=== PATIENT | female | born 1960 | race American Indian/Alaskan Native ===

== ENCOUNTER 2017-01-31 14:40 | Emergency (ER) | payer SELFPAY ==
[2017-01-31 15:15] VITALS: BP 150/83; PULSE 77; RESP 20; TEMP 98.6; O2SAT 99; BMI 47.2
--- NOTE | 2017-01-31 15:35 | ED PDOC ---
Arrival/HPI - General Chief Complaint: Headache Time Seen by Provider: 01/31/17 14:53 Historian: Patient - History of Present Illness Narrative History of Present Illness (Text): 01/31/17 15:32 This 56 yo female with PMHx significant for NIDDM, and HTN, who presents to ER with complaint of scalp itching, soreness scalp x 3 months. Patient stated she has been using Dandruff medication without significant improvement. Patient stated she is complaint to her medication. Patient denies headache, weakness, paresthesias, recent travel, sick contact,or abnormal gait. Patient stated her daughter has similar scalp rash. Time/Duration: Other (3 months) Context: Home Past Medical History - Provider Review Nursing Documentation Reviewed: Yes - Past History Past History: Non-Contributing - Infectious Disease Hx of Infectious Diseases: None - Reproductive Menopause: No - Cardiac Hx Cardiac Disorders: Yes Hx Hypertension: Yes - Pulmonary Hx Respiratory Disorders: No - Neurological Hx Neurological Disorder: No - HEENT Hx HEENT Disorder: No - Renal Hx Renal Disorder: No - Endocrine/Metabolic Hx Endocrine Disorders: Yes Hx Diabetes Mellitus Type 2: Yes - Hematological/Oncological Hx Blood Disorders: No - Integumentary Hx Dermatological Disorder: No - Musculoskeletal/Rheumatological Hx Musculoskeletal Disorders: No - Gastrointestinal Hx Gastrointestinal Disorders: No - Genitourinary/Gynecological Hx Genitourinary Disorders: No - Psychiatric Hx Psychophysiologic Disorder: No Hx Substance Use: No - Surgical History Hx Section: Yes - Anesthesia Hx Anesthesia: No Hx Anesthesia Reactions: No Hx Malignant Hyperthermia: No Family/Social History - Physician Review Nursing Documentation Reviewed: Yes Family/Social History: No Known Family HX Smoking Status: Never Smoked Hx Alcohol Use: No Hx Substance Use: No Allergies/Home Meds Allergies/Adverse Reactions: Allergies amoxicillin Allergy (Verified 01/31/17 15:38) RASH Home Medications: Home Meds Medication Instructions Recorded Confirmed Lisinopril [Zestril] 20 mg PO DAILY 06/06/16 01/31/17 Review of Systems - Review of Systems Constitutional: Normal. absent: Fatigue, Weight Change, Fevers Eyes: Normal ENT: Normal. absent: Sore Throat, Rhinorrhea Respiratory: Normal. absent: SOB, Cough, Sputum, Wheezing Cardiovascular: Normal Gastrointestinal: Normal. absent: Abdominal Pain, Nausea, Vomiting Genitourinary Female: Normal Musculoskeletal: Normal Skin: Rash (scalp), Pruritis Neurological: Normal. absent: Headache, Dizziness, Focal Weakness, Gait Changes , Speech Changes, Facial Droop, Disequilibrium Endocrine: Normal Hemo/Lymphatic: Normal Psychiatric: Normal Physical Exam Vital Signs Temp Pulse Resp BP Pulse Ox 01/31/17 15:09 98.6 F 77 20 150/83 99 Temperature: Afebrile Blood Pressure: Normal Pulse: Regular Respiratory Rate: Normal Appearance: Positive for: Well-Appearing, Non-Toxic, Comfortable Pain Distress: None Mental Status: Positive for: Alert and Oriented X 3 - Systems Exam Head: Present: Atraumatic, Normocephalic Pupils: Present: PERRL Extroacular Muscles: Present: EOMI Conjunctiva: Present: Normal Mouth: Present: Moist Mucous Membranes Pharnyx: Present: Normal. No: ERYTHEMA, EXUDATE, TONSILS ENLARGED Neck: Present: Normal Range of Motion Back: Present: Normal Inspection Upper Extremity: Present: Normal Inspection, Normal ROM, NORMAL PULSES, Neurovascularly Intact, Capillary Refill < 2s. No: Cyanosis, Edema Lower Extremity: Present: Normal Inspection, NORMAL PULSES, Normal ROM, Neurovascularly Intact, Capillary Refill < 2 s. No: Edema Neurological: Present: GCS=15, CN II-XII Intact, Speech Normal Skin: Present: Warm, Dry, Rashes ((+) scalp scaly rash, resembled dandruff), Normal Color Psychiatric: Present: Alert, Oriented x 3, Normal Insight, Normal Concentration Medical Decision Making ED Course and Treatment: 01/31/17 15:41 Re-evaluation. Patient feels better. Discussed results and plan with patient who expresses understanding. All questions answered and there is agreement with the plan to discharge home with instructions. Patient stable for discharge. Return if symptoms persist or worsen. Re-evaluation Time: 15:40 Reassessment Condition: Re-examined, Unchanged Disposition/Present on Arrival - Present on Arrival Any Indicators Present on Arrival: No History of DVT/PE: No History of Uncontrolled Diabetes: No Urinary Catheter: No History of Decub. Ulcer: No History Surgical Site Infection Following: None - Disposition Have Diagnosis and Disposition been Completed?: Yes Diagnosis: Dandruff in adult Disposition: HOME/ ROUTINE Disposition Time: 15:42 Patient Plan: Discharge Condition: GOOD Discharge Instructions (ExitCare): Selenium Sulfide (On the skin) Additional Instructions: Call private or clinic doctor for follow up visit in 1-2 days. return to emergency if symptoms worsen. Prescriptions: Ketoconazole 2% Shampoo [Nizoral] 1 appl TP 2XW PRN #1 bottle PRN Reason: Itching / Pruritus Referrals: Jo Campbell MD [Primary Care Provider] - Follow up with primary [facility] [Outside] - Follow up with primary [facility] [Outside] - Follow up with primary
== END 2017-01-31 16:33 | disposition home or self-care (01) ==
LOC: ED 14:40
DX: I10 Essential (primary) hypertension (principal); E11.9 Type 2 diabetes mellitus without complications; L21.9 Seborrheic dermatitis, unspecified

== ENCOUNTER 2017-03-02 18:34 | Emergency (ER) | payer OTHER ==
[2017-03-02 18:35] VITALS: BMI 47.2
[2017-03-02 19:02] VITALS: TEMP 98.9
[2017-03-02 20:50] VITALS: BP 130/72; PULSE 82; RESP 17; O2SAT 98
--- NOTE | 2017-03-02 20:54 | ED PDOC ---
Arrival/HPI - General Chief Complaint: Cough, Cold, Congestion Time Seen by Provider: 03/02/17 19:12 Historian: Patient - History of Present Illness Narrative History of Present Illness (Text): 03/02/17 21:01 A 56 year old female presents to the emergency department complaining of cough and congestion. Patient also notes productive cough with phlegm. Denies any fever, chills, shortness of breath or any other complaints at this time. Symptom Onset: Sudden Symptom Course: Unchanged Activities at Onset: Rest Context: Home Past Medical History - Provider Review Nursing Documentation Reviewed: Yes - Past History Past History: Non-Contributing - Infectious Disease Hx of Infectious Diseases: None - Cardiac Hx Cardiac Disorders: Yes Hx Hypertension: Yes - Pulmonary Hx Respiratory Disorders: No - Neurological Hx Neurological Disorder: No - HEENT Hx HEENT Disorder: No - Renal Hx Renal Disorder: No - Endocrine/Metabolic Hx Endocrine Disorders: Yes Hx Diabetes Mellitus Type 2: Yes - Hematological/Oncological Hx Blood Disorders: No - Integumentary Hx Dermatological Disorder: No - Musculoskeletal/Rheumatological Hx Musculoskeletal Disorders: No - Gastrointestinal Hx Gastrointestinal Disorders: No - Genitourinary/Gynecological Hx Genitourinary Disorders: No - Psychiatric Hx Psychophysiologic Disorder: No Hx Substance Use: No - Surgical History Hx Section: Yes - Anesthesia Hx Anesthesia: No Hx Anesthesia Reactions: No Hx Malignant Hyperthermia: No Family/Social History - Physician Review Nursing Documentation Reviewed: Yes Family/Social History: No Known Family HX Smoking Status: Never Smoked Hx Alcohol Use: No Hx Substance Use: No Allergies/Home Meds Allergies/Adverse Reactions: Allergies amoxicillin Allergy (Verified 03/02/17 19:02) RASH Home Medications: Home Meds Medication Instructions Recorded Confirmed Lisinopril [Zestril] 20 mg PO DAILY 06/06/16 03/02/17 Glipizide [Glipizide Xl] 0 mg PO BID 03/02/17 03/02/17 Review of Systems - Physician Review All systems were reviewed & negative as marked: Yes - Review of Systems Constitutional: absent: Fevers, Other (chills) ENT: Sinus Congestion Respiratory: Cough. absent: SOB Physical Exam Vital Signs Reviewed: Yes Vital Signs Temp Pulse Resp BP Pulse Ox 03/02/17 20:49 82 17 130/72 98 03/02/17 18:59 98.9 F 85 16 135/74 97 Temperature: Afebrile Blood Pressure: Normal Pulse: Regular Respiratory Rate: Normal Appearance: Positive for: Well-Appearing, Non-Toxic, Comfortable Pain Distress: None Mental Status: Positive for: Alert and Oriented X 3 Finger Stick Blood Glucose: 231 - Systems Exam Head: Present: Atraumatic, Normocephalic Pupils: Present: PERRL Extroacular Muscles: Present: EOMI Conjunctiva: Present: Normal Mouth: Present: Moist Mucous Membranes Neck: Present: Normal Range of Motion Respiratory/Chest: Present: Clear to Auscultation, Good Air Exchange. No: Respiratory Distress, Accessory Muscle Use Cardiovascular: Present: Regular Rate and Rhythm, Normal S1, S2. No: Murmurs Abdomen: Present: Normal Bowel Sounds. No: Tenderness, Distention, Peritoneal Signs Back: Present: Normal Inspection Upper Extremity: Present: Normal Inspection. No: Cyanosis, Edema Lower Extremity: Present: Normal Inspection. No: Edema Neurological: Present: GCS=15, CN II-XII Intact, Speech Normal Skin: Present: Warm, Dry, Normal Color. No: Rashes Psychiatric: Present: Alert, Oriented x 3, Normal Insight, Normal Concentration Medical Decision Making ED Course and Treatment: 03/02/17 21:00 Impression: A 56 year old female with cough and congestion. Plan: -- chest xray -- Reassess and disposition -- FS Prior Visits: Notes and results from previous visits were reviewed. Patient was last seen in the emergency department on 01/31/17 for evaluation of scalp itching and soreness. Progress Notes: FS 231 CXR : NAD, as read by PA On reevaluation, patient is resting comfortably in no acute distress. Patient is in no respiratory distress, speaking in full sentences. Chest x-ray results discussed with the patient in great detail. Prescription for Z-Ramone and guaifenesin provided to patient. Patient advised rest, instructed to continue continue being compliant with her diabetic medication and to continue to follow diabetic diet to have adequate control of her blood sugar. Otherwise was instructed to follow up with primary care physician in 1-2 days without fail. Return to the emergency room at any time for any new or worsening symptoms. Patient states she fully agrees with and understands discharge instructions. States that she agrees with the plan and disposition. Verbalized and repeated discharge instructions and plan. I have given the patient opportunity to ask any additional questions. - RAD Interpretation Radiology Orders: 03/02/17 19:29 CHEST TWO VIEWS (PA/LAT) [RAD] Stat - PA / MILITARY EQUIPMENT SPECIALIST / Resident Statement MD/DO has reviewed & agrees with the documentation as recorded. - Scribe Statement The provider has reviewed the documentation as recorded by the Joana Espinosa Provider Scribe Attestation: All medical record entries made by the Scribe were at my direction and personally dictated by me. I have reviewed the chart and agree that the record accurately reflects my personal performance of the history, physical exam, medical decision making, and the department course for this patient. I have also personally directed, reviewed, and agree with the discharge instructions and disposition. Disposition/Present on Arrival - Present on Arrival Any Indicators Present on Arrival: No History of DVT/PE: No History of Uncontrolled Diabetes: No Urinary Catheter: No History of Decub. Ulcer: No History Surgical Site Infection Following: None - Disposition Have Diagnosis and Disposition been Completed?: Yes Diagnosis: Cough Disposition: HOME/ ROUTINE Disposition Time: 20:30 Patient Plan: Discharge Condition: STABLE Discharge Instructions (ExitCare): Acute Bronchitis (ED) Print Language: NORWEGIAN Additional Instructions: Thank you for letting us take care of you today. You were treated for cough, consider bronchitis. The emergency medical care you received today was directed at your acute symptoms. If you were prescribed any medication, please fill it and take as directed. It may take several days for your symptoms to resolve. Return to the Emergency Department if your symptoms worsen, do not improve, or if you have any other problems. Please contact your doctor in 2 days for re-evaluation and follow up. Bring any paperwork you were given at discharge with you along with any medications you are taking to your follow up visit. Our treatment cannot replace ongoing medical care by a primary care provider (PCP) outside of the emergency department. Thank you for allowing the [facility] team to be part of your care today. Prescriptions: Azithromycin [Z-Ramone] 250 mg PO DAILY #6 tab Guaifenesin 400 mg PO QID #20 tablet Referrals: Jo Campbell MD [Primary Care Provider] - Follow up with primary Forms: [employer] (Yoruba), WORK NOTE
--- NOTE | 2017-03-02 20:57 | ED PDOC ---
Arrival/HPI - General Chief Complaint: Cough, Cold, Congestion Time Seen by Provider: 03/02/17 19:12 Historian: Patient - History of Present Illness Narrative History of Present Illness (Text): 03/02/17 20:56 A 56 year old female presents to the emergency department complaining of cough and congestion. Patient also reports productive cough with phlegm. Patient denies any fever, chills, shortness of breath or any other complaints at this time. Symptom Onset: Sudden Symptom Course: Unchanged Activities at Onset: Rest Context: Home Past Medical History - Provider Review Nursing Documentation Reviewed: Yes - Past History Past History: Non-Contributing - Infectious Disease Hx of Infectious Diseases: None - Cardiac Hx Cardiac Disorders: Yes Hx Hypertension: Yes - Pulmonary Hx Respiratory Disorders: No - Neurological Hx Neurological Disorder: No - HEENT Hx HEENT Disorder: No - Renal Hx Renal Disorder: No - Endocrine/Metabolic Hx Endocrine Disorders: Yes Hx Diabetes Mellitus Type 2: Yes - Hematological/Oncological Hx Blood Disorders: No - Integumentary Hx Dermatological Disorder: No - Musculoskeletal/Rheumatological Hx Musculoskeletal Disorders: No - Gastrointestinal Hx Gastrointestinal Disorders: No - Genitourinary/Gynecological Hx Genitourinary Disorders: No - Psychiatric Hx Psychophysiologic Disorder: No Hx Substance Use: No - Surgical History Hx Section: Yes - Anesthesia Hx Anesthesia: No Hx Anesthesia Reactions: No Hx Malignant Hyperthermia: No Family/Social History - Physician Review Nursing Documentation Reviewed: Yes Family/Social History: No Known Family HX Smoking Status: Never Smoked Hx Alcohol Use: No Hx Substance Use: No Allergies/Home Meds Allergies/Adverse Reactions: Allergies amoxicillin Allergy (Verified 03/02/17 19:02) RASH Home Medications: Home Meds Medication Instructions Recorded Confirmed Lisinopril [Zestril] 20 mg PO DAILY 06/06/16 03/02/17 Glipizide [Glipizide Xl] 0 mg PO BID 03/02/17 03/02/17 Review of Systems - Physician Review All systems were reviewed & negative as marked: Yes - Review of Systems Constitutional: absent: Fevers, Other (chills) ENT: Sinus Congestion Respiratory: Cough. absent: SOB Physical Exam Vital Signs Reviewed: Yes Vital Signs Temp Pulse Resp BP Pulse Ox 03/02/17 20:49 82 17 130/72 98 03/02/17 18:59 98.9 F 85 16 135/74 97 Temperature: Afebrile Blood Pressure: Normal Pulse: Regular Respiratory Rate: Normal Appearance: Positive for: Well-Appearing, Non-Toxic, Comfortable Pain Distress: None Mental Status: Positive for: Alert and Oriented X 3 Finger Stick Blood Glucose: 231 - Systems Exam Head: Present: Atraumatic, Normocephalic Pupils: Present: PERRL Extroacular Muscles: Present: EOMI Conjunctiva: Present: Normal Mouth: Present: Moist Mucous Membranes Neck: Present: Normal Range of Motion Respiratory/Chest: Present: Clear to Auscultation, Good Air Exchange. No: Respiratory Distress, Accessory Muscle Use Cardiovascular: Present: Regular Rate and Rhythm, Normal S1, S2. No: Murmurs Abdomen: Present: Normal Bowel Sounds. No: Tenderness, Distention, Peritoneal Signs Back: Present: Normal Inspection Upper Extremity: Present: Normal Inspection. No: Cyanosis, Edema Lower Extremity: Present: Normal Inspection. No: Edema Neurological: Present: GCS=15, CN II-XII Intact, Speech Normal Skin: Present: Warm, Dry, Normal Color. No: Rashes Psychiatric: Present: Alert, Oriented x 3, Normal Insight, Normal Concentration Medical Decision Making ED Course and Treatment: 03/02/17 20:54 Impression: A 56 year old female with cough and congestion. Plan: -- chest xray -- Reassess and disposition Prior Visits: Notes and results from previous visits were reviewed. Patient was last seen in the emergency department on 01/31/17 for evaluation of scalp itching and scalp soreness. Progress Notes: - RAD Interpretation Radiology Orders: 03/02/17 19:29 CHEST TWO VIEWS (PA/LAT) [RAD] Stat - Scribe Statement The provider has reviewed the documentation as recorded by the Joana Espinosa Provider Scribe Attestation: All medical record entries made by the Scribe were at my direction and personally dictated by me. I have reviewed the chart and agree that the record accurately reflects my personal performance of the history, physical exam, medical decision making, and the department course for this patient. I have also personally directed, reviewed, and agree with the discharge instructions and disposition. Disposition/Present on Arrival - Present on Arrival Any Indicators Present on Arrival: No History of DVT/PE: No History of Uncontrolled Diabetes: No Urinary Catheter: No History of Decub. Ulcer: No History Surgical Site Infection Following: None - Disposition Diagnosis: Cough Disposition: HOME/ ROUTINE Condition: STABLE Discharge Instructions (ExitCare): Acute Bronchitis (ED) Print Language: INDONESIAN Additional Instructions: Thank you for letting us take care of you today. You were treated for cough, consider bronchitis. The emergency medical care you received today was directed at your acute symptoms. If you were prescribed any medication, please fill it and take as directed. It may take several days for your symptoms to resolve. Return to the Emergency Department if your symptoms worsen, do not improve, or if you have any other problems. Please contact your doctor in 2 days for re-evaluation and follow up. Bring any paperwork you were given at discharge with you along with any medications you are taking to your follow up visit. Our treatment cannot replace ongoing medical care by a primary care provider (PCP) outside of the emergency department. Thank you for allowing the [facility] medical team to be part of your care today. Prescriptions: Azithromycin [Z-Ramone] 250 mg PO DAILY #6 tab Guaifenesin 400 mg PO QID #20 tablet Referrals: Jo Campbell MD [Primary Care Provider] - Follow up with primary Forms: [employer] (Swiss), WORK NOTE
--- NOTE | 2017-03-03 09:56 | RAD ---
HISTORY: Cough COMPARISON: 09/30/2015. TECHNIQUE: Chest PA and lateral FINDINGS: LUNGS: No active pulmonary disease. PLEURA: No significant pleural effusion identified. No pneumothorax apparent. CARDIOVASCULAR: No radiographic findings to suggest acute or significant cardiovascular disease. OSSEOUS STRUCTURES: No significant abnormalities. VISUALIZED UPPER ABDOMEN: Normal. OTHER FINDINGS: None. IMPRESSION: No active disease. No significant interval change compared to the prior examination(s).
== END 2017-03-02 21:22 | disposition home or self-care (01) ==
LOC: ED 18:34
DX: R05 Cough (principal); I10 Essential (primary) hypertension

== ENCOUNTER 2017-03-29 15:29 | Emergency (ER) | payer OTHER ==
[2017-03-29 15:29] VITALS: BMI 47.2
[2017-03-29 15:44] VITALS: BP 143/74; PULSE 79; TEMP 98.1
[2017-03-29 16:03] VITALS: RESP 16; O2SAT 98
[2017-03-29] MEDS ORDERED: Ciprofloxacin/Dexamethasone OTIC SUSP AS STA (16:12)
--- NOTE | 2017-03-29 16:18 | ED PDOC ---
Arrival/HPI - General Chief Complaint: ENT Problem Time Seen by Provider: 03/29/17 16:12 Historian: Patient - History of Present Illness Narrative History of Present Illness (Text): 03/29/17 16:15 56 y/o female, pmh including dm/edema, allergic to amoxicillin, c/o lt. ear pain x 2 days. PT. stated that she has left ear itching 2 days ago, been scratching it, noticed to have the left ear pain today, no coughing or night sweat, no change in vision, no change in hearing, no other medical or psychological complaints. Past Medical History - Provider Review Nursing Documentation Reviewed: Yes - Past History Past History: Non-Contributing - Infectious Disease Hx of Infectious Diseases: None - Cardiac Hx Cardiac Disorders: Yes Hx Hypertension: Yes - Pulmonary Hx Respiratory Disorders: No - Neurological Hx Neurological Disorder: No - HEENT Hx HEENT Disorder: No - Renal Hx Renal Disorder: No - Endocrine/Metabolic Hx Endocrine Disorders: Yes Hx Diabetes Mellitus Type 2: Yes - Hematological/Oncological Hx Blood Disorders: No - Integumentary Hx Dermatological Disorder: No - Musculoskeletal/Rheumatological Hx Musculoskeletal Disorders: No - Gastrointestinal Hx Gastrointestinal Disorders: No - Genitourinary/Gynecological Hx Genitourinary Disorders: No - Psychiatric Hx Psychophysiologic Disorder: No Hx Substance Use: No - Surgical History Hx Section: Yes (x3) - Anesthesia Hx Anesthesia: No Hx Anesthesia Reactions: No Hx Malignant Hyperthermia: No Family/Social History - Physician Review Nursing Documentation Reviewed: Yes Family/Social History: Unknown Family HX Smoking Status: Never Smoked Hx Alcohol Use: No Hx Substance Use: No Allergies/Home Meds Allergies/Adverse Reactions: Allergies amoxicillin Allergy (Verified 03/29/17 15:44) RASH Home Medications: Home Meds Medication Instructions Recorded Confirmed Lisinopril [Zestril] 20 mg PO DAILY 06/06/16 03/02/17 Glipizide [Glipizide Xl] 1 tab PO BID 03/02/17 03/29/17 Review of Systems - Review of Systems Constitutional: absent: Fatigue, Fevers Eyes: absent: Vision Changes ENT: Other (lt. ear pain). absent: Hearing Changes Respiratory: absent: SOB, Cough Cardiovascular: absent: Chest Pain Gastrointestinal: absent: Abdominal Pain, Diarrhea, Nausea, Vomiting Psychiatric: absent: Anxiety, Depression, Suicidal Ideation Physical Exam Vital Signs Reviewed: Yes Vital Signs Temp Pulse Resp BP Pulse Ox 03/29/17 16:02 98.1 F 79 16 98 03/29/17 15:38 98.1 F 79 18 143/74 99 Temperature: Afebrile Blood Pressure: Normal Pulse: Regular Respiratory Rate: Normal Appearance: Positive for: Well-Appearing, Non-Toxic, Comfortable Pain Distress: Mild Mental Status: Positive for: Alert and Oriented X 3 - Systems Exam Head: Present: Atraumatic, Normocephalic Pupils: Present: PERRL Extroacular Muscles: Present: EOMI Conjunctiva: Present: Normal Ears: Present: Other (Ears: bilateral TMs oscar color and intact, lt. auditory canal erythematous and mild swelling which the pain aggravated by pulling the left ear, rt. auditory canal non-erythematous, no mastoid tenderness. ) Mouth: Present: Moist Mucous Membranes Neck: Present: Normal Range of Motion Respiratory/Chest: Present: Clear to Auscultation, Good Air Exchange. No: Respiratory Distress, Accessory Muscle Use Cardiovascular: Present: Regular Rate and Rhythm, Normal S1, S2. No: Murmurs Abdomen: Present: Normal Bowel Sounds. No: Tenderness, Distention, Peritoneal Signs Back: Present: Normal Inspection Upper Extremity: Present: Normal Inspection. No: Cyanosis, Edema Lower Extremity: Present: Normal Inspection. No: Edema Neurological: Present: GCS=15, Speech Normal, Motor Func Grossly Intact, Gait Normal, Memory Normal Skin: Present: Warm, Dry, Normal Color. No: Rashes Psychiatric: Present: Alert, Oriented x 3, Normal Insight, Normal Concentration Medical Decision Making ED Course and Treatment: 03/29/17 16:54 -motrin and ciprodex ordered, pt. feels better. -Discharge home with ciprodex, motrin, stay hydrated, keep the left ear dry and clean, follow up with your own and ENT within 2 days, return to the ER for any new or worsening signs or symptoms. - Medication Orders Current Medication Orders: Discontinued Medications Ciprofloxacin/Dexamethasone (Ciprodex Otic) 4 drop STAT STA Stop: 03/29/17 16:13 Last Admin: 03/29/17 16:39 Dose: 4 drop Ibuprofen (Motrin Tab) 600 mg PO STAT STA Stop: 03/29/17 16:15 Last Admin: 03/29/17 16:39 Dose: 600 mg - PA / [employer] / Resident Statement / has reviewed & agrees with the documentation as recorded. Disposition/Present on Arrival - Present on Arrival Any Indicators Present on Arrival: No History of DVT/PE: No History of Uncontrolled Diabetes: No Urinary Catheter: No History of Decub. Ulcer: No History Surgical Site Infection Following: None - Disposition Have Diagnosis and Disposition been Completed?: Yes Diagnosis: Otitis externa Disposition: HOME/ ROUTINE Disposition Time: 16:56 Patient Plan: Discharge Condition: IMPROVED Additional Instructions: -Discharge home with ciprodex, motrin, stay hydrated, keep the left ear dry and clean, follow up with your own and ENT within 2 days, return to the ER for any new or worsening signs or symptoms. Prescriptions: Ciprofloxacin/Dexamethasone [Ciprodex Otic] 4 drop BID #1 bottle Ibuprofen [Motrin Tab] 400 mg PO QID PRN #24 tab PRN Reason: Other Referrals: Chiara Chacon APN[facility] [Primary Care Provider] - Follow up with primary Jey Moy DO [Staff Provider] - Follow up with primary Forms: [facility] (Turkish), WORK NOTE
== END 2017-03-29 17:05 | disposition home or self-care (01) ==
LOC: ED 15:29
DX: H60.92 Unspecified otitis externa, left ear (principal)

== ENCOUNTER 2017-05-06 19:51 | Emergency (ER) | payer OTHER ==
[2017-05-06 19:51] VITALS: BMI 47.2
[2017-05-06 20:08] VITALS: BP 146/73; PULSE 89; RESP 18; TEMP 97.1; O2SAT 98
[2017-05-06] MEDS ORDERED: levoFLOXacin 500 MG TAB PO STA (20:30)
--- NOTE | 2017-05-06 20:46 | ED PDOC ---
Arrival/HPI - General Chief Complaint: Cough, Cold, Congestion Time Seen by Provider: 05/06/17 20:09 Historian: Patient - History of Present Illness Narrative History of Present Illness (Text): 05/06/17 20:45 56 year old female, whose past medical history includes diabetes/edema and is allergic to amoxicillin, presents complaining of a strong cough that began this morning. Patient requested antibiotics. Patient denies any fever, chills, chest pain, shortness of breath, nausea, vomiting, diarrhea, back pain, neck pain, headache, dizziness, or any other complaints. Time/Duration: Other (This morning) Symptom Onset: Sudden Symptom Course: Unchanged Activities at Onset: Light Context: Home Past Medical History - Provider Review Nursing Documentation Reviewed: Yes - Past History Past History: Non-Contributing - Infectious Disease Hx of Infectious Diseases: None - Cardiac Hx Cardiac Disorders: Yes Hx Hypertension: Yes - Pulmonary Hx Respiratory Disorders: No - Neurological Hx Neurological Disorder: No - HEENT Hx HEENT Disorder: No - Renal Hx Renal Disorder: No - Endocrine/Metabolic Hx Endocrine Disorders: Yes Hx Diabetes Mellitus Type 2: Yes - Hematological/Oncological Hx Blood Disorders: No - Integumentary Hx Dermatological Disorder: No - Musculoskeletal/Rheumatological Hx Musculoskeletal Disorders: No - Gastrointestinal Hx Gastrointestinal Disorders: No - Genitourinary/Gynecological Hx Genitourinary Disorders: No - Psychiatric Hx Psychophysiologic Disorder: No Hx Substance Use: No - Surgical History Hx Section: Yes (x3) - Anesthesia Hx Anesthesia: Yes Hx Anesthesia Reactions: No Hx Malignant Hyperthermia: No Family/Social History - Physician Review Nursing Documentation Reviewed: Yes Family/Social History: No Known Family HX Smoking Status: Never Smoked Hx Alcohol Use: No Hx Substance Use: No Allergies/Home Meds Allergies/Adverse Reactions: Allergies amoxicillin Allergy (Intermediate, Verified 05/06/17 20:04) RASH Home Medications: Home Meds Medication Instructions Recorded Confirmed Lisinopril [Zestril] 20 mg PO DAILY 06/06/16 05/06/17 Glipizide [Glipizide Xl] 1 tab PO BID 03/02/17 05/06/17 Review of Systems - Physician Review All systems were reviewed & negative as marked: Yes - Review of Systems Constitutional: absent: Fevers, Other (Chills) Respiratory: Cough. absent: SOB Cardiovascular: absent: Chest Pain Gastrointestinal: absent: Diarrhea, Nausea, Vomiting Musculoskeletal: absent: Back Pain, Neck Pain Neurological: absent: Headache, Dizziness Physical Exam Vital Signs Reviewed: Yes Vital Signs Temp Pulse Resp BP Pulse Ox 05/06/17 20:06 97.1 F L 89 18 146/73 98 Temperature: Febrile Blood Pressure: Normal Pulse: Regular Respiratory Rate: Normal Appearance: Positive for: Well-Appearing, Non-Toxic, Comfortable Pain Distress: None Mental Status: Positive for: Alert and Oriented X 3 - Systems Exam Head: Present: Atraumatic, Normocephalic Pupils: Present: PERRL Extroacular Muscles: Present: EOMI Conjunctiva: Present: Normal Mouth: Present: Moist Mucous Membranes Neck: Present: Normal Range of Motion Respiratory/Chest: Present: Clear to Auscultation, Good Air Exchange. No: Respiratory Distress, Accessory Muscle Use Cardiovascular: Present: Regular Rate and Rhythm, Normal S1, S2. No: Murmurs Abdomen: Present: Normal Bowel Sounds. No: Tenderness, Distention, Peritoneal Signs Back: Present: Normal Inspection Upper Extremity: Present: Normal Inspection. No: Cyanosis, Edema Lower Extremity: Present: Normal Inspection. No: Edema Neurological: Present: GCS=15, CN II-XII Intact, Speech Normal Skin: Present: Warm, Dry, Normal Color. No: Rashes Psychiatric: Present: Alert, Oriented x 3, Normal Insight, Normal Concentration Medical Decision Making ED Course and Treatment: 05/06/17 20:45 Impression: 56 year old female presents complaining of a strong cough that began this morning. Plan: -- Levaquin -- Reassess and disposition Prior Visits: Notes and results from previous visits were reviewed. On 03/29/17 patient came in complaining of left ear pain that began two days ago. Progress Notes: - Medication Orders Current Medication Orders: Discontinued Medications Levofloxacin (Levaquin) 500 mg PO STAT STA Stop: 05/06/17 20:31 Last Admin: 05/06/17 20:37 Dose: 500 mg - Scribe Statement The provider has reviewed the documentation as recorded by the Meryibstephanie Berry All medical record entries made by the Meryibstephanie were at my direction and personally dictated by me. I have reviewed the chart and agree that the record accurately reflects my personal performance of the history, physical exam, medical decision making, and the department course for this patient. I have also personally directed, reviewed, and agree with the discharge instructions and disposition. Disposition/Present on Arrival - Present on Arrival Any Indicators Present on Arrival: No History of DVT/PE: No History of Uncontrolled Diabetes: No Urinary Catheter: No History of Decub. Ulcer: No History Surgical Site Infection Following: None - Disposition Have Diagnosis and Disposition been Completed?: Yes Diagnosis: Upper respiratory infection Disposition: HOME/ ROUTINE Disposition Time: 20:00 Condition: GOOD Discharge Instructions (ExitCare): Chest Pain (ED), Cold Symptoms (ED) Prescriptions: levoFLOXacin [Levaquin] 500 mg PO DAILY #10 tab Referrals: Jo Campbell MD [Primary Care Provider] - Follow up with primary Forms: [facility] (Korean)
== END 2017-05-06 20:44 | disposition home or self-care (01) ==
LOC: ED 19:51
DX: J06.9 Acute upper respiratory infection, unspecified (principal); I10 Essential (primary) hypertension; E11.9 Type 2 diabetes mellitus without complications

== ENCOUNTER 2017-06-28 21:29 | Emergency (ER) | payer SELFPAY ==
[2017-06-28 21:29] VITALS: BMI 47.2
[2017-06-28] MEDS ORDERED: Oxycodone/Acetaminophen 5/325 mg Tab PO STA (22:00)
--- NOTE | 2017-06-28 22:08 | ED PDOC ---
Arrival/HPI - General Time Seen by Provider: 06/28/17 21:33 Historian: Patient - History of Present Illness Narrative History of Present Illness (Text): 06/28/17 21:35 Kristy Kidd is a 56 year old female, whose past medical history includes diabetes and hypertension, who presents to the emergency department complaining of pain to the left shoulder today. Patient states that she woke up with pain to her left shoulder which is reproducible with any attempt of shoulder movement , raising her arm, and touching shoulder area. Patient denies any history of trauma, chest pain, shortness of breath, fever, chills, or any other complaint at this time. Time/Duration: 4-6 hours Symptom Onset: Gradual Symptom Course: Unchanged Severity Level: Mild Activities at Onset: Light Context: Home Past Medical History - Provider Review Nursing Documentation Reviewed: Yes - Past History Past History: Non-Contributing - Infectious Disease Hx of Infectious Diseases: None - Cardiac Hx Cardiac Disorders: Yes Hx Hypertension: Yes - Pulmonary Hx Respiratory Disorders: No - Neurological Hx Neurological Disorder: No - HEENT Hx HEENT Disorder: No - Renal Hx Renal Disorder: No - Endocrine/Metabolic Hx Endocrine Disorders: Yes Hx Diabetes Mellitus Type 2: Yes - Hematological/Oncological Hx Blood Disorders: No - Integumentary Hx Dermatological Disorder: No - Musculoskeletal/Rheumatological Hx Musculoskeletal Disorders: No - Gastrointestinal Hx Gastrointestinal Disorders: No - Genitourinary/Gynecological Hx Genitourinary Disorders: No - Psychiatric Hx Psychophysiologic Disorder: No Hx Substance Use: No - Surgical History Hx Section: Yes (x3) - Anesthesia Hx Anesthesia: Yes Hx Anesthesia Reactions: No Hx Malignant Hyperthermia: No Family/Social History - Physician Review Nursing Documentation Reviewed: Yes Family/Social History: No Known Family HX Smoking Status: Never Smoked Hx Alcohol Use: No Hx Substance Use: No Allergies/Home Meds Allergies/Adverse Reactions: Allergies amoxicillin Allergy (Intermediate, Verified 06/28/17 22:11) RASH Home Medications: Home Meds Medication Instructions Recorded Confirmed Lisinopril [Zestril] 20 mg PO DAILY 06/06/16 05/25/17 Glipizide [Glipizide Xl] 1 tab PO BID 03/02/17 05/25/17 Review of Systems - Review of Systems Constitutional: absent: Fevers, Night Sweats Eyes: absent: Vision Changes ENT: absent: Hearing Changes Respiratory: absent: SOB, Cough Cardiovascular: absent: Chest Pain Gastrointestinal: absent: Abdominal Pain Genitourinary Female: absent: Dysuria, Frequency Musculoskeletal: Other (Left shoulder pain) Skin: absent: Rash, Pruritis Neurological: absent: Headache, Dizziness Endocrine: absent: Diaphoresis, Polyuria Hemo/Lymphatic: absent: Adenopathy Psychiatric: absent: Depression Physical Exam Vital Signs Reviewed: Yes Vital Signs Temp Pulse Resp BP Pulse Ox 06/28/17 22:09 97.9 F 78 16 156/87 H 98 - Systems Exam Head: Present: Atraumatic, Normocephalic Pupils: Present: PERRL Extroacular Muscles: Present: EOMI Conjunctiva: Present: Normal Mouth: Present: Moist Mucous Membranes Neck: Present: Normal Range of Motion Respiratory/Chest: Present: Clear to Auscultation Cardiovascular: Present: Regular Rate and Rhythm, Normal S1, S2. No: Murmurs Abdomen: Present: Normal Bowel Sounds. No: Tenderness, Distention, Peritoneal Signs Upper Extremity: Present: Tenderness (palpable tenderness to left anterior lateral shoulder), Neurovascularly Intact, Other (Pain at any attempt of left shoulder abduction) Lower Extremity: Present: Normal Inspection. No: Edema Neurological: Present: GCS=15, CN II-XII Intact, Speech Normal Skin: Present: Warm, Dry, Normal Color. No: Rashes Psychiatric: Present: Alert, Oriented x 3, Normal Insight, Normal Concentration Medical Decision Making ED Course and Treatment: 06/28/17 22:12 Impression: 56 year old female complaining of left shoulder pain for a few hours. Differential Diagnosis included but are not limited to: Plan: -- Left shoulder x-ray -- Percocet and Toradol -- Reassess and disposition Prior Visits: Notes and results from previous visits were reviewed. Patient was last seen on 05/25/17 for left knee pain for one week. Patient was discharged home. Progress Notes: 06/28/17 23:24 Reviewed radiology, left shoulder x-ray shows no acute processes. - RAD Interpretation Radiology Orders: 06/28/17 21:59 SHOULDER LEFT [RAD] Stat - Medication Orders Current Medication Orders: Discontinued Medications Ketorolac Tromethamine (Toradol) 60 mg IM ONCE ONE Stop: 06/28/17 22:01 Last Admin: 06/28/17 22:21 Dose: 60 mg MAR Pain Assessment Document 06/28/17 22:21 RE (Rec: 06/28/17 22:21 RE [id number]) Pain Reassessment Is this a pain reassessment? No Sleep Is patient sleeping during reassessment? No Presence of Pain Presence of Pain No IM Administration Charges Document 06/28/17 22:21 RE (Rec: 06/28/17 22:21 RE [id number]) Injection Site MAR Injection Site Right Deltoid Charges for Administration # of IM Administrations 1 Oxycodone/Acetaminophen (Percocet 5/325 Mg Tab) 1 tab PO STAT STA Stop: 06/28/17 22:01 Last Admin: 06/28/17 22:18 Dose: 1 tab MAR Pain Assessment Document 06/28/17 22:18 RE (Rec: 06/28/17 22:19 RE [id number]) Pain Reassessment Is this a pain reassessment? No Sleep Is patient sleeping during reassessment? No Presence of Pain Presence of Pain Yes Pain Scale Used Pain Scale Used Numeric Location Pain Location Body Site Shoulder Description Pain Behavior Facial Grimacing Aggravating Factors Changing Position - Scribe Statement The provider has reviewed the documentation as recorded by the Scribe Antoinette Rossi All medical record entries made by the Scribe were at my direction and personally dictated by me. I have reviewed the chart and agree that the record accurately reflects my personal performance of the history, physical exam, medical decision making, and the department course for this patient. I have also personally directed, reviewed, and agree with the discharge instructions and disposition. Disposition/Present on Arrival - Present on Arrival Any Indicators Present on Arrival: No History of DVT/PE: No History of Uncontrolled Diabetes: No Urinary Catheter: No History Surgical Site Infection Following: None - Disposition Have Diagnosis and Disposition been Completed?: Yes Diagnosis: Shoulder bursitis Disposition: HOME/ ROUTINE Disposition Time: 23:25 Patient Plan: Discharge Condition: GOOD Discharge Instructions (ExitCare): Shoulder Bursitis (ED) Additional Instructions: Take meds as prescribed/follow up with the orthopedist this week Prescriptions: Naproxen [Naprosyn] 500 mg PO BID PRN #14 tab PRN Reason: Pain Tramadol HCl [Ultram] 50 mg PO Q6 PRN #12 tab PRN Reason: Pain, Moderate (4-7) Referrals: [facility] [Outside] - Follow up with primary Giorgi Prabhakar DO [Staff Provider] - Follow up with primary
[2017-06-28 22:11] VITALS: BP 156/87; PULSE 78; RESP 16; TEMP 97.9; O2SAT 98
--- NOTE | 2017-06-29 08:59 | RAD ---
PROCEDURE: Radiographs of the Left Shoulder HISTORY: Left shoulder Pain. No history of recent/ related trauma provided COMPARISON: No prior. FINDINGS: BONES: Normal. No fracture. JOINTS: Normal. Glenohumeral and acromioclavicular joints preserved. No osteoarthritis. SOFT TISSUES: Normal. OTHER FINDINGS: None. IMPRESSION: No significant or acute findings to account for/ related to the clinical presentation.
== END 2017-06-29 00:03 | disposition home or self-care (01) ==
LOC: ED 21:29
DX: M75.52 Bursitis of left shoulder (principal); I10 Essential (primary) hypertension; E11.9 Type 2 diabetes mellitus without complications
CPT/HCPCS: 73030; 96372; 99283; J1885

== ENCOUNTER 2017-07-12 17:20 | Emergency (ER) | payer OTHER ==
--- NOTE | 2017-07-12 17:27 | ED PDOC ---
Arrival/HPI - General Time Seen by Provider: 07/12/17 17:25 Historian: Patient - History of Present Illness Narrative History of Present Illness (Text): 07/12/17 17:27 56 y/o female, pmh including htn/dm, allergic to penicillin, c/o complaining of elevated blood sugar and fatigue after started new medication. Pt. silva chronic htn and dm which she is on metoprolol/amlodipine/lisinopril with recently added hydrochlorthiazide from 12.5 to 25mg po qd which been making her fatigeu and tire which her own pmd Dr. Campbell subsequently decrease her glyberize from 15mg po tid to 5mg po bid which she thinks this is making her blood sugar high. Pt. stated that the hydrochlorthiazide is making her stomach discomfort with no nausea or vomiting, no palpitation, no chest pain or shortness of breath, no night sweat, no change in vision, no other medical or psychological complaints. Past Medical History - Provider Review Nursing Documentation Reviewed: Yes - Past History Past History: Non-Contributing - Infectious Disease Hx of Infectious Diseases: None - Cardiac Hx Cardiac Disorders: Yes Hx Hypertension: Yes - Pulmonary Hx Respiratory Disorders: No - Neurological Hx Neurological Disorder: No - HEENT Hx HEENT Disorder: No - Renal Hx Renal Disorder: No - Endocrine/Metabolic Hx Endocrine Disorders: Yes Hx Diabetes Mellitus Type 2: Yes - Hematological/Oncological Hx Blood Disorders: No - Integumentary Hx Dermatological Disorder: No - Musculoskeletal/Rheumatological Hx Musculoskeletal Disorders: No - Gastrointestinal Hx Gastrointestinal Disorders: No - Genitourinary/Gynecological Hx Genitourinary Disorders: No - Psychiatric Hx Psychophysiologic Disorder: No Hx Substance Use: No - Surgical History Hx Section: Yes (x3) - Anesthesia Hx Anesthesia: Yes Hx Anesthesia Reactions: No Hx Malignant Hyperthermia: No Family/Social History - Physician Review Nursing Documentation Reviewed: Yes Family/Social History: Unknown Family HX Smoking Status: Never Smoked Hx Alcohol Use: No Hx Substance Use: No Allergies/Home Meds Allergies/Adverse Reactions: Allergies amoxicillin Allergy (Intermediate, Verified 06/28/17 22:11) RASH Home Medications: Home Meds Medication Instructions Recorded Confirmed GlipiZIDE [Glucotrol] 15 mg PO BID 07/12/17 07/12/17 Lisinopril [Zestril] 40 mg PO DAILY 07/12/17 07/12/17 MetFORMIN [glucOPHAGE] 1,000 mg PO BID 07/12/17 07/12/17 Metoprolol Tartrate [Lopressor] 50 mg PO BID 07/12/17 07/12/17 amLODIPine [Norvasc] 10 mg PO DAILY 07/12/17 07/12/17 hydroCHLOROthiazide [Hydrodiuril] 25 mg PO DAILY 07/12/17 07/12/17 Review of Systems - Review of Systems Constitutional: Fatigue. absent: Fevers Eyes: absent: Vision Changes ENT: absent: Hearing Changes Respiratory: absent: SOB, Cough Cardiovascular: absent: Chest Pain Gastrointestinal: Abdominal Pain. absent: Diarrhea, Nausea, Vomiting Musculoskeletal: absent: Arthralgias, Back Pain Skin: absent: Rash, Pruritis, Skin Lesions Neurological: absent: Headache, Dizziness Psychiatric: absent: Anxiety, Depression, Suicidal Ideation Physical Exam Vital Signs Temp Pulse Resp BP Pulse Ox 07/12/17 21:00 97.6 F 88 16 124/56 L 100 07/12/17 19:21 97.7 F 75 16 146/65 17 L 07/12/17 17:31 97.6 F 78 20 160/85 H 98 Pain Distress: Mild - Systems Exam Head: Present: Atraumatic, Normocephalic Pupils: Present: PERRL Extroacular Muscles: Present: EOMI Conjunctiva: Present: Normal Mouth: Present: Moist Mucous Membranes Neck: Present: Normal Range of Motion Respiratory/Chest: Present: Clear to Auscultation, Good Air Exchange. No: Respiratory Distress, Accessory Muscle Use Cardiovascular: Present: Regular Rate and Rhythm, Normal S1, S2. No: Murmurs Abdomen: Present: Tenderness (epigastric tenderness, no guarding), Normal Bowel Sounds. No: Distention, Peritoneal Signs Back: Present: Normal Inspection Upper Extremity: Present: Normal Inspection. No: Cyanosis, Edema Lower Extremity: Present: Normal Inspection. No: Edema Neurological: Present: GCS=15, CN II-XII Intact, Speech Normal, Motor Func Grossly Intact, Gait Normal, Memory Normal, Other (no drift, normal finger to nose test, normal heel to ruiz test. ) Skin: Present: Warm, Dry, Normal Color. No: Rashes Psychiatric: Present: Alert, Oriented x 3, Normal Insight, Normal Concentration Medical Decision Making ED Course and Treatment: 07/12/17 17:45 -labs/ua -ekg -chest ray -orthostatic -IVF -Observe and reassess 07/12/17 20:27 -Orthostatic vital signs reviewed with no acute findings. -EKG: NSR @ 72 BPM, no ST elevation or depression, no T wave inversion. -Chest xray show no active disease -Labs are non-significant, negative BNP -UA show no UTI. -Pt. feels completely relief, eating and drinking well, no focal neurological deficits. -Discharge home with pepcid, education on follow up with your own pmd and optimization engineer about the hydrochlorthiazide and glyberize medications making you feeling fatigue, return to the ER for any new or worsening signs or symptoms. - Lab Interpretations Lab Results: 07/12/17 18:00 07/12/17 18:00 Lab Results 07/12/17 19:20: Urine Color Yellow, Urine Appearance Clear, Urine pH 6.0, Ur Specific Petroleum <= 1.005, Urine Protein Negative, Urine Glucose (UA) Negative, Urine Ketones Negative, Urine Blood Negative, Urine Nitrate Negative, Urine Bilirubin Negative, Urine Urobilinogen 0.2, Ur Leukocyte Esterase Negative 07/12/17 18:00: Sodium 137, Potassium 4.6, Chloride 99, Carbon Dioxide 28, Anion Gap 15, BUN 13, Creatinine 0.7, Est GFR ( Amer) > 60, Est GFR (Non- Af Amer) > 60, Random Glucose 129 H, Calcium 10.0, Magnesium 1.4 L, Total Bilirubin 0.4, AST 56 H, ALT 71 H, Alkaline Phosphatase 60, Lactate Dehydrogenase 481, Total Creatine Kinase 146, Troponin I < 0.01, NT-Pro-B Natriuret Pep 28.4, Total Protein 7.7, Albumin 4.6, Globulin 3.2, Albumin/ Globulin Ratio 1.4, Lipase 270 07/12/17 18:00: WBC 9.3, RBC 4.95, Hgb 13.1, Hct 37.5, MCV 75.8 L, MCH 26.5, MCHC 34.9, RDW 14.7 H, Plt Count 207, MPV 9.9, Gran % 35.4 L, Lymph % (Auto) 56.5 H, [place] % (Auto) 4.4, Eos % (Auto) 3.4, Baso % (Auto) 0.3, Gran # 3.28, Lymph # 5.2 H, [place] # 0.4, Eos # 0.3, Baso # 0.03 - RAD Interpretation Radiology Orders: 07/12/17 17:39 CHEST PORTABLE [RAD] Stat no active disease Blade Bender Furnace Tender: Radiologist - EKG Interpretation EKG Interpretation (Text): 07/12/17 18:46 -EKG: NSR @ 72 BPM, no ST elevation or depression, no T wave inversion. Interpreted by ED Physician: Yes Type: 12 lead EKG - Medication Orders Current Medication Orders: Discontinued Medications Famotidine (Pepcid) 20 mg IVP STAT STA Stop: 07/12/17 17:40 Last Admin: 07/12/17 18:17 Dose: 20 mg IVP Administration Document 07/12/17 18:17 RD (Rec: 07/12/17 18:17 RD [id number]) Charges for Administration # of IVP Administrations 1 Sodium Chloride (Sodium Chloride 0.9%) 1,000 mls @ 100 mls/hr IV .Q10H KACIE Last Admin: 07/12/17 18:17 Dose: 100 mls/hr eMAR Start Stop Document 07/12/17 18:17 RD (Rec: 07/12/17 18:17 RD [id number]) Intravenous Solution Start Date 07/12/17 Start Time 18:17 Magnesium Sulfate/Dextrose (Magnesium Sulfate 1 Gm/100 Ml D5w) 1 gm in 100 mls @ 100 mls/hr IVPB ONCE ONE Stop: 07/12/17 19:44 Last Admin: 07/12/17 19:07 Dose: 100 mls/hr eMAR Start Stop Document 07/12/17 19:07 AB (Rec: 07/12/17 19:07 AB [facility] [id number]) Intravenous Solution Start Date 07/12/17 Start Time 19:07 End Date 07/12/17 End time 20:07 Total Infusion Time 60 - PA / PSYCHIATRIC MENTAL HEALTH NURSE / Resident Statement MD/DO has reviewed & agrees with the documentation as recorded. Disposition/Present on Arrival - Present on Arrival Any Indicators Present on Arrival: No History of DVT/PE: No History of Uncontrolled Diabetes: No Urinary Catheter: No History of Decub. Ulcer: No History Surgical Site Infection Following: None - Disposition Have Diagnosis and Disposition been Completed?: Yes Diagnosis: Medication side effect Disposition: HOME/ ROUTINE Disposition Time: 20:28 Patient Plan: Discharge Condition: IMPROVED Additional Instructions: -Discharge home with pepcid, education on follow up with your own pmd and optimization engineer about the hydrochlorthiazide and glyberize medications making you feeling fatigue, return to the ER for any new or worsening signs or symptoms. Prescriptions: Famotidine [Pepcid] 20 mg PO BID #20 tab Referrals: Jo Campbell MD [Primary Care Provider] - Follow up with primary Hoang Estrada MD [Staff Provider] - Follow up with primary Forms: WORK NOTE
[2017-07-12 17:42] VITALS: BMI 48.3
[2017-07-12] MEDS ORDERED: Sodium Chloride 0.9% 1,000 ML IV SCH (17:45)
[2017-07-12 18:16] LABS: BASO # 0.03 K/mm3 (0.0-2.0); BASO % 0.3 % (0.0-3.0); EOS # 0.3 (0.0-0.7); EOS % 3.4 % (1.5-5.0); GRAN # 3.28 (1.4-6.5); GRAN % 35.4 % (50.0-68.0); HEMATOCRIT 37.5 % (36.0-48.0); LYMPH # 5.2 (1.2-3.4); LYMPH % 56.5 % (22.0-35.0); MEAN CELL VOLUME 75.8 fl (80.0-105.0); MEAN CORPUSCULAR HEMOGLOBIN 26.5 pg (25.0-35.0); MEAN CORPUSCULAR HGB CONC 34.9 g/dl (31.0-37.0); MEAN PLATELET VOLUME 9.9 fl (7.0-11.0); MONO # 0.4 (0.1-0.6); MONO % 4.4 % (1.0-6.0); RED CELL DISTRIBUTION WIDTH 14.7 % (11.5-14.5); WHITE BLOOD COUNT 9.3 10^3/ul (4.5-11.0)
[2017-07-12 18:28] LABS: BLOOD UREA NITROGEN 13 mg/dL (7-21); CARBON DIOXIDE 28 mmol/L (21-33); CHLORIDE 99 mmol/L (98-107); GFR AFRICAN-AMERICAN > 60; GLUCOSE,RANDOM 129 mg/dL (70-110); MAGNESIUM 1.4 mg/dL (1.7-2.2); POTASSIUM 4.6 mmol/L (3.6-5.0); SODIUM 137 mmol/L (132-148); TOTAL PROTEIN 7.7 g/dL (5.8-8.3)
[2017-07-12 18:29] LABS: ALB/GLOB RATIO 1.4 (1.1-1.8); ALKALINE PHOSPHATASE 60 U/L (38-126); ALT/SGPT 71 U/L (7-56); AST/SGOT 56 U/L (14-36); BILIRUBIN,TOTAL 0.4 mg/dL (0.2-1.3); LIPASE 270 U/L (23-300)
[2017-07-12 18:40] LABS: TROPONIN I < 0.01 ng/mL
[2017-07-12] MEDS ORDERED: Magnesium Sulfate 1 gm in D5W 1 GM/100 ML BAG IVPB ONE (18:45)
[2017-07-12 19:45] LABS: URINE BILIRUBIN NEGATIVE (NEGATIVE); URINE BLOOD NEGATIVE (NEGATIVE); URINE GLUCOSE (UA) NEGATIVE (NEGATIVE); URINE KETONE NEGATIVE (NEGATIVE); URINE LEUKOCYTE ESTERASE NEGATIVE Leu/uL (NEGATIVE); URINE PROTEIN NEGATIVE mg/dL (<30 mg/dL); URINE UROBILINOGEN 0.2 E.U./dL (<1 E.U./dL)
[2017-07-12 19:47] LABS: URINE APPEARANCE CLEAR (CLEAR); URINE COLOR YELLOW (YELLOW)
[2017-07-12 19:59] VITALS: RESP 16
[2017-07-12 21:09] VITALS: BP 124/56; PULSE 88; TEMP 97.6; O2SAT 100
--- NOTE | 2017-07-13 09:22 | RAD ---
HISTORY: medical clearance COMPARISON: Chest radiograph dated 03/02/2017. FINDINGS: LUNGS: Prominence of the pulmonary vasculature may be secondary to AP technique and/or pulmonary vascular congestion. PLEURA: No significant pleural effusion identified, no pneumothorax apparent. CARDIOVASCULAR: Cardiomediastinal silhouette appears prominent; however, this cannot be accurately assessed on an AP projection. OSSEOUS STRUCTURES: Unchanged. VISUALIZED UPPER ABDOMEN: Normal. OTHER FINDINGS: None. IMPRESSION: No active disease.
--- NOTE | 2017-07-13 10:19 | CARD ---
APPROVED REPORT EKG Measurement Heart [id number] <Conclusion> Normal sinus rhythm Normal ECG No change
== END 2017-07-12 20:29 | disposition home or self-care (01) ==
LOC: ED 17:20
DX: R53.83 Other fatigue (principal); T50.2X5A Adverse effect of carbonic-anhydrase inhibitors, benzothiadiazides and other diuretics, initial encounter
CPT/HCPCS: 71010; 80053; 81003; 82550; 83615; 83690; 83735; 83880; 84484; 85025; 93005; 96365; 96375; 99285; J3475; J7040